=== PATIENT | male | born 1970 | race Two or more races ===

== ENCOUNTER 2016-12-26 15:06 | Inpatient (IN) | payer OTHER ==
[2016-12-26 18:28] VITALS: BMI 18.4
--- NOTE | 2016-12-26 21:29 | HP ---
CIWA Score - CIWA Score Nausea/Vomitin Muscle Tremors: 4-Moderate,w/Arms Extend Anxiety: 4-Mod. Anxious/Guarded Agitation: 4-Moderately Restless Paroxysmal Sweats: 1-Minimal Palms Moist Orientation: 1-Uncertain about Date Tacttile Disturbances: 0-None Auditory Disturbances: 0-None Visual Disturbances: 0-None Headache: 0-None Present CIWA-Ar Total Score: 16 Admission ROS BHS - HPI Chief Complaint: WITHDRAWAL SX Allergies/Adverse Reactions: Allergies Allergy/AdvReac Type Severity Reaction Status Date / Time No Known Allergies Allergy Verified 02/20/14 10:56 History of Present Illness: 45 YEARS OLD MALE WITH LONG HISTORY OF ALCOHOL XANAX NICOTINE DEPENDENCE HAS DIABETES AND LIVER CIRRHOSIS AND DEPRESSION IS ADMITTED TO DETOX Exam Limitations: No Limitations - Ebola screening Have you traveled outside of the country in the last 21 days: No Have you had contact with anyone from an Ebola affected area: No Have you been sick,other than usual withdrawal symptoms: No Do you have a fever: No - Review of Systems Constitutional: Loss of Appetite, Changes in sleep, Unintentional Wgt. Loss, Unexplained wgt Loss EENT: reports: No Symptoms Reported Respiratory: reports: SOB with Exertion, Productive cough (GREENISH) Cardiac: reports: No Symptoms Reported GI: reports: Nausea, Poor Appetite, Poor Fluid Intake, Vomiting, Indigestion, Abdominal cramping : reports: No Symptoms Reported Musculoskeletal: reports: Back Pain, Joint Pain, Muscle Pain, Neck Pain Integumentary: reports: Rash (LEFT FORE ARM FROM DRYNESS) Neuro: reports: Tremors Endocrine: reports: No Symptoms Reported Hematology: reports: No Symptoms Reported Psychiatric: reports: Judgement Intact, Anxious, Depressed Other Systems: Reviewed and Negative Patient History - Patient Medical History Hx Anemia: No Hx Asthma: Yes (As a child) Hx Chronic Obstructive Pulmonary Disease (COPD): No Hx Cancer: No Hx Cardiac Disorders: No Hx Congestive Heart Failure: No Hx Hypertension: No Hx Hypercholesterolemia: No Hx Pacemaker: No HX Cerebrovascular Accident: No Hx Seizures: No Hx Dementia: No Hx Diabetes: Yes (Yes, BGM: 459mg/dl) Hx Gastrointestinal Disorders: Yes Hx Liver Disease: Yes Hx Genitourinary Disorders: No Hx Sexually Transmitted Disorders: No Hx Renal Disease (ESRD): No Hx Thyroid Disease: No Hx Human Immunodeficiency Virus (HIV): No (03/2011-negative results) Hx Hepatitis C: No Hx Depression: Yes Hx Suicide Attempt: No Hx Bipolar Disorder: No Hx Schizophrenia: No - Patient Surgical History Past Surgical History: No Hx Neurologic Surgery: No Hx Cataract Extraction: No Hx Cardiac Surgery: No Hx Lung Surgery: No Hx Breast Surgery: No Hx Breast Biopsy: No Hx Abdominal Surgery: No Hx Appendectomy: No Hx Cholecystectomy: No Hx Genitourinary Surgery: No Hx Orthopedic Surgery: No - PPD History Previous Implant?: Yes Documented Results: Negative w/o proof Implanted On Prior R Admission?: Yes Date: 10/15/13 Results: 0 mm PPD to be Administered?: Yes - Smoking Cessation Smoking history: Current every day smoker Have you smoked in the past 12 months: Yes Aproximately how many cigarettes per day: 20 Cigars Per Day: 0 Hx Chewing Tobacco Use: No Initiated information on smoking cessation: Yes 'Breaking Loose' booklet given: 12/26/16 - Substance & Tx. History Hx Alcohol Use: Yes Hx Substance Use: Yes Substance Use Type: Alcohol, Cocaine, Heroin, Tranquilizers Hx Substance Use Treatment: Yes (2013) - Substances Abused Alcohol Route: Oral Frequency: Daily Amount used: Beer 10- 15 cans, Liquor 1 bottle Age of first use: 19 Date of Last Use: 12/26/16 Alprazolam (Xanax) Route: Oral Frequency: Daily Amount used: 10mg Age of first use: 23 Date of Last Use: 12/26/16 Family Disease History - Family Disease History Family Disease History: CA: Mother ( FROM BREAST CA.), Other: Father (ETOH DEPENDENT) Admission Physical Exam S - Vital Signs Vital Signs: Vital Signs - 24 hr 12/26/16 18:26 Temperature 98.2 F Pulse Rate 103 H Respiratory 20 Rate Blood Pressure 95/57 - Physical General Appearance: Yes: Appropriately Dressed, Mild Distress, Thin, Tremorous, Irritable, Sweating, Anxious HEENTM: Yes: Hearing grossly Normal, Normal ENT Inspection, Normocephalic, Normal Voice Respiratory: Yes: Chest Non-Tender, No Respiratory Distress, No Accessory Muscle Use, Wheezing, Expiration Neck: Yes: Supple, Trachea in good position Breast: Yes: Breasts Symetrical Cardiology: Yes: Regular Rhythm, Regular Rate, S1, S2, Tachycardia Abdominal: Yes: Non Tender, Soft, Increased Bowel Sounds Genitourinary: Yes: Within Normal Limits Back: Yes: Normal Inspection Musculoskeletal: Yes: full range of Motion, Gait Steady, Back pain, Muscle Pain Extremities: Yes: Normal Inspection (RASHES ON LEFT INNER FORE ARM), Normal Range of Motion, Non-Tender, Tremors Neurological: Yes: Alert, Motor Strength 5/5, Normal Response, Depressed Affect Integumentary: Yes: Dry, Warm Lymphatic: Yes: Within Normal Limits - Diagnostic (1) Depressed Current Visit: Yes Status: Suspected Qualifiers: Depression Type: dysthymia Qualified Code(s): F34.1 - Dysthymic disorder; F34.1 - Dysthymic disorder; F34.1 - Dysthymic disorder (2) Methadone maintenance therapy patient Current Visit: Yes Status: Chronic Comment: 140 MG VERIFICATION PENDING (3) Type 2 diabetes mellitus Current Visit: Yes Status: Chronic Qualifiers: Diabetes mellitus complication status: without complication Diabetes mellitus adjunct faculty for medical terminology insulin use: without adjunct faculty for medical terminology use Qualified Code(s): E11.9 - Type 2 diabetes mellitus without complications; E11.9 - Type 2 diabetes mellitus without complications; E11.9 - Type 2 diabetes mellitus without complications; E11.9 - Type 2 diabetes mellitus without complications (4) Nicotine dependence Current Visit: Yes Status: Acute (5) Dry skin Current Visit: Yes Status: Acute (6) Asthma Current Visit: Yes Status: Chronic Qualifiers: Asthma severity: mild Asthma persistence: intermittent Asthma complication type: with status asthmaticus Qualified Code(s): J45.22 - Mild intermittent asthma with status asthmaticus; J45.22 - Mild intermittent asthma with status asthmaticus; J45.22 - Mild intermittent asthma with status asthmaticus (7) GERD (gastroesophageal reflux disease) Current Visit: Yes Status: Chronic Qualifiers: Esophagitis presence: without esophagitis Qualified Code(s): K21.9 - Gastro-esophageal reflux disease without esophagitis; K21.9 - Gastro- esophageal reflux disease without esophagitis; K21.9 - Gastro-esophageal reflux disease without esophagitis Cleared for Admission BHS - Detox or Rehab [facility] Level of Care: Medically Managed Detox Regimen/Protocol: Valium S Breath Alcohol Content Breath Alcohol Content: 0 Urine Drug Screen - Results Drug Screen Negative: No Urine Drug Screen Results: JONO-Cocaine, OPI-Opiates, BZO-Benzodiazepines, MTD- Methadone, TCA-Tricyclic Antidepress
[2016-12-26] MEDS ORDERED: ACETAMINOPHEN 325 MG TABLET (FP) PO PRN (21:32)
[2016-12-26] MEDS ORDERED: diazePAM 5 MG TABLET PO ONE (21:32)
[2016-12-26] MEDS ORDERED: MENTHOL/PHENOL 1 EACH UD MM PRN (21:32)
[2016-12-26] MEDS ORDERED: MAGNESIUM HYDROX 2400MG/30ML ORAL SUSPENSION 30 ML CUP PO PRN (21:32)
[2016-12-26] MEDS ORDERED: MAG HYDROX/AL HYDROX/SIMETH 30 ML UNIT-DOSE CUP PO PRN (21:32)
[2016-12-26] MEDS ORDERED: P-EPHED 60MG/TRIPROLIDI 2.5MG TABLET PO PRN (21:32)
[2016-12-26] MEDS ORDERED: NICOTINE POLACRILEX 4 MG GUM BC PRN (21:32)
[2016-12-26] MEDS ORDERED: guaiFENesin/D-METHORPHAN HB 10 ML UNIT-DOSE CUPS PO PRN (21:32)
[2016-12-26] MEDS ORDERED: LOPERAMIDE HCL 2 MG CAPSULE PO PRN (21:32)
[2016-12-26] MEDS ORDERED: MAGNESIUM CITRATE 300 ML BOTTLE PO PRN (21:32)
[2016-12-26] MEDS ORDERED: COLLOIDAL OATMEAL 1 BAR EACH TP PRN (21:35)
[2016-12-26] MEDS ORDERED: ALBUTEROL SO4 18 GM HFA INHALER IH PRN (21:37)
[2016-12-26] MEDS ORDERED: INSULIN (NOVOLOG) ASPART 100 UNITS/ML 10ML VIAL ONE (22:31)
[2016-12-26] MEDS: diphenhydrAMINE HCL 50 MG CAPSULE PO PRN (22:33)
[2016-12-26] MEDS: RANITIDINE HCL 150 MG TABLET (FP) PO SCH (22:33)
[2016-12-26] MEDS: THIAMINE HCL 100 MG TABLET (FP) PO SCH (22:33)
[2016-12-26] MEDS: diazePAM 5 MG TABLET PO SCH (22:37)
[2016-12-26] MEDS: INSULIN SLIDING SCALE (NOVOLOG) 1 VIAL SQ SCH (22:40)
[2016-12-26] MEDS: MINERAL OIL/PETROLAT/WATER TOPICAL CREAM 113 GM JAR TP SCH (22:40)
[2016-12-26 23:10] LABS: URINE APPEARANCE CLEAR; URINE BILIRUBIN NEGATIVE (NEGATIVE); URINE BLOOD NEGATIVE (NEGATIVE); URINE COLOR YELLOW; URINE GLUCOSE (UA) 3+ (NEGATIVE); URINE KETONE NEGATIVE (NEGATIVE); URINE LEUK ESTERASE NEGATIVE (NEGATIVE); URINE NITRITE NEGATIVE (NEGATIVE); URINE PROTEIN NEGATIVE (NEGATIVE)
[2016-12-27] MEDS: diazePAM 5 MG TABLET PO SCH ×3 (05:23→22:50)
[2016-12-27] MEDS ORDERED: INSULIN (NOVOLOG) ASPART 100 UNITS/ML 10ML VIAL ONE ×3 (06:36→17:35)
[2016-12-27] MEDS: metFORMIN HCL 500 MG TABLET (FP) PO SCH ×2 (06:57→17:44)
[2016-12-27] MEDS: INSULIN SLIDING SCALE (NOVOLOG) 1 VIAL SQ SCH ×4 (07:01→22:51)
--- NOTE | 2016-12-27 07:39 | CONSULT ---
[facility] Psychiatric Consult - Data Date of interview: 12/27/16 Admission source: [facility] Identifying data: This is 46 years old male with no psychiatric hospitalization history intoxicated with: Alcohol, Cocaine, Cannabis, Xanax, Nicotine, Opioids Substance Abuse History: - Smoking Cessation. Smoking history: Current every day smoker. Have you smoked in the past 12 months: Yes. Aproximately how many cigarettes per day: 20. Cigars Per Day: 0. Hx Chewing Tobacco Use: No. Initiated information on smoking cessation: Yes. 'Breaking Loose' booklet given : 12/26/16. - Substance & Tx. History. Hx Alcohol Use: Yes. Hx Substance Use : Yes. Substance Use Type: Alcohol, Cocaine, Heroin, Tranquilizers. Hx Substance Use Treatment: Yes (2013). - Substances Abused. Alcohol. Route: Oral. Frequency: Daily. Amount used: Beer 10- 15 cans, Liquor 1 bottle. Age of first use: 19. Date of Last Use: 12/26/16. Alprazolam (Xanax). Route: Oral. Frequency: Daily. Amount used: 10mg. Age of first use: 23. Date of Last Use: 12/26/16 Medical History: Asthma, GERD, DM-2, Seizure history, Syncope history, MMTP 140mf/day Psychiatric History: Patient reports history of depression, reports takijg prior to admission: Seroquel 50mg po bid. Vistaril 50mg po q4 prn for anxiety Physical/Sexual Abuse/Trauma History: Denies Additional Comment: Seroquel 50mg po bid. Vistaril 50mg po q4 prn for anxiety Mental Status Exam - Mental Status Exam Alert and Oriented to: Person Cognitive Function: Fair Patient Appearance: Well Groomed Mood: Apprehensive Affect: Mood Congruent Patient Behavior: Cooperative Speech Pattern: Appropriate Voice Loudness: Normal Thought Process: Goal Oriented Thought Disorder: Being Controlled Hallucinations: Denies Suicidal Ideation: Denies Homicidal Ideation: Denies Insight/Judgement: Fair Appetite: Weight loss Muscle strength/Tone: Normal Gait/Station: Normal Additional Comments: Seroquel 50mg po bid. 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 Vistaril 50mg po q4 prn for anxiety
[2016-12-27] MEDS ORDERED: hydrOXYzine PAMOATE 50 MG CAPSULE (FP) PO PRN (09:24)
[2016-12-27 09:41] LABS: MCH 31.3 pg (25.7-33.7); MEAN CELL VOLUME 94.8 fl (80-96); MEAN PLT VOLUME 10.2 fl (7.5-11.1); PLATELET COUNT 78 K/MM3 (134-434); RDW 13.9 % (11.9-15.9); WHITE BLOOD COUNT 4.4 K/mm3 (4.0-10.0)
[2016-12-27 09:49] LABS: ALBUMIN 3.2 g/dl (3.4-5.0); ANION GAP 4 (8-16); CALCIUM 8.7 mg/dL (8.5-10.1); CO2 32 mmol/L (21-32); CREATININE 0.6 mg/dL (0.7-1.3); GLUCOSE,RANDOM 268 mg/dL (74-106); SGOT/AST 73 U/L (15-37)
[2016-12-27 09:52] LABS: ALK PHOS 357 U/L (45-117); BILIRUBIN,TOTAL 0.4 mg/dL (0.2-1.0); SGPT/ALT 124 U/L (12-78); TOT PROT 6.6 g/dl (6.4-8.2)
[2016-12-27] MEDS ORDERED: METHADONE HCL 40 MG DISPERSABLE TABLET PO SCH (10:00)
[2016-12-27] MEDS: RANITIDINE HCL 150 MG TABLET (FP) PO SCH ×2 (10:16→22:51)
[2016-12-27] MEDS: PRENATAL VITAMINS W/ FOLIC ACID TABLET (FP) PO SCH (10:16)
[2016-12-27] MEDS: diazePAM 5 MG TABLET PO PRN (10:16)
[2016-12-27] MEDS: NICOTINE 21 MG/24 HOURS TOPICAL PATCH TD SCH (10:18)
[2016-12-27] MEDS ORDERED: METHADONE HCL 40 MG DISPERSABLE TABLET ONE (10:23)
[2016-12-27] MEDS ORDERED: METHADONE HCL 10 MG TABLET ONE (10:23)
[2016-12-27] MEDS: METHADONE 120 MG, METHADONE 20 MG PO SCH (10:24)
[2016-12-27] MEDS: QUEtiapine FUMARATE 50 MG TABLET PO SCH ×2 (10:28→22:51)
--- NOTE | 2016-12-27 11:51 | EKG ---
Test Reason : Blood Pressure : / mmHG Vent. Rate : 083 BPM Atrial Rate : 083 BPM P-R Int : 136 ms QRS Dur : 100 ms QT Int : 394 ms P-R-T Axes : 073 062 060 degrees QTc Int : 462 ms NORMAL SINUS RHYTHM INCOMPLETE RIGHT BUNDLE BRANCH BLOCK BORDERLINE ECG NO PREVIOUS ECGS AVAILABLE Confirmed by RADHA SALCEDO, ANALY ([id number]) on 12/27/2016 11:50:49 AM Referred By: Confirmed By:ANALY GARCIA MD
[2016-12-27] MEDS ORDERED: PNEUMOCOCCAL 23 VACCINE 0.5 ML VIAL IM ONE (12:00)
[2016-12-27] MEDS ORDERED: FLU VACCINE QUAD 60 MCG/0.5 ML (MDV 17-18) IM ONE ×2 (12:00→12:20)
[2016-12-27] MEDS ORDERED: PNEUMOC 13-VAL CONJ-DIP CRM/PF 0.5 ML DISP.SYRIN IM ONE (12:00)
--- NOTE | 2016-12-27 12:17 | PN ---
S CIWA - CIWA Score Nausea/Vomitin Muscle Tremors: 3 Anxiety: 3 Agitation: 3 Paroxysmal Sweats: 1-Minimal Palms Moist Orientation: 0-Oriented Tacttile Disturbances: 1-Very Mild Itch/Numbness Auditory Disturbances: 1-Very Mild Visual Disturbances: 0-None Headache: 2-Mild CIWA-Ar Total Score: 17 BHS Progress Note (SOAP) Subjective: alert,irritable,anxious,interrupted sleep,tremor,pain in the body and back Objective: 12/27/16 12:15 Vital Signs Temperature 98.2 F 12/27/16 10:35 Pulse Rate 110 H 12/27/16 10:35 Respiratory Rate 20 12/27/16 10:35 Blood Pressure 108/69 12/27/16 10:35 O2 Sat by Pulse Oximetry (%) ekg nsr no chest pain,nosob,no dizziness Laboratory Last Values WBC 4.4 K/mm3 (4.0-10.0) 12/27/16 07:00 RBC 4.18 M/mm3 (4.00-5.60) 12/27/16 07:00 Hgb 13.1 GM/dL (11.7-16.9) 12/27/16 07:00 Hct 39.6 % (35.4-49) 12/27/16 07:00 MCV 94.8 fl (80-96) 12/27/16 07:00 MCH 31.3 pg (25.7-33.7) 12/27/16 07:00 MCHC 33.0 g/dl (32.0-35.9) 12/27/16 07:00 RDW 13.9 % (11.9-15.9) 12/27/16 07:00 Plt Count 78 K/MM3 (134-434) L 12/27/16 07:00 MPV 10.2 fl (7.5-11.1) 12/27/16 07:00 Sodium 139 mmol/L (136-145) 12/27/16 07:00 Potassium 4.5 mmol/L (3.5-5.1) D 12/27/16 07:00 Chloride 103 mmol/L (98-107) 12/27/16 07:00 Carbon Dioxide 32 mmol/L (21-32) 12/27/16 07:00 Anion Gap 4 (8-16) L 12/27/16 07:00 BUN 14 mg/dL (7-18) 12/27/16 07:00 Creatinine 0.6 mg/dL (0.7-1.3) L 12/27/16 07:00 Creat Clearance w eGFR > 60 (>60) 12/27/16 07:00 POC Glucometer 379 UNITS (()) 12/27/16 11:09 Random Glucose 268 mg/dL (74-106) H D 12/27/16 07:00 Calcium 8.7 mg/dL (8.5-10.1) 12/27/16 07:00 Total Bilirubin 0.4 mg/dL (0.2-1.0) 12/27/16 07:00 AST 73 U/L (15-37) H D 12/27/16 07:00 ALT 124 U/L (12-78) H D 12/27/16 07:00 Alkaline Phosphatase 357 U/L (45-117) H D 12/27/16 07:00 Total Protein 6.6 g/dl (6.4-8.2) 12/27/16 07:00 Albumin 3.2 g/dl (3.4-5.0) L 12/27/16 07:00 Urine Color Yellow 12/26/16 22:11 Urine Appearance Clear 12/26/16 22:11 Urine pH 6.0 (5.0-8.0) 12/26/16 22:11 Ur Specific [place] 1.020 (1.005-1.025) 12/26/16 22:11 Urine Protein Negative (NEGATIVE) 12/26/16 22:11 Urine Glucose (UA) 3+ (NEGATIVE) H 12/26/16 22:11 Urine Ketones Negative (NEGATIVE) 12/26/16 22:11 Urine Blood Negative (NEGATIVE) 12/26/16 22:11 Urine Nitrite Negative (NEGATIVE) 12/26/16 22:11 Urine Bilirubin Negative (NEGATIVE) 12/26/16 22:11 Urine Urobilinogen 2.0 mg/dL (0.2-1.0) 12/26/16 22:11 RPR Titer Nonreactive (NONREACTIVE) 12/27/16 07:00 Assessment: 12/27/16 12:16 withdrawal symptom Plan: continue detox,d/c tylenol for elevation of alt,ast
[2016-12-27] MEDS: THIAMINE HCL 100 MG TABLET (FP) PO SCH (22:51)
[2016-12-27] MEDS: MINERAL OIL/PETROLAT/WATER TOPICAL CREAM 113 GM JAR TP SCH (22:54)
[2016-12-28] MEDS ORDERED: METHADONE HCL 40 MG DISPERSABLE TABLET ONE (05:23)
[2016-12-28] MEDS ORDERED: METHADONE HCL 10 MG TABLET ONE (06:00)
[2016-12-28] MEDS: METHADONE 120 MG, METHADONE 20 MG PO SCH (06:02)
[2016-12-28] MEDS: diazePAM 5 MG TABLET PO PRN (06:05)
[2016-12-28] MEDS: metFORMIN HCL 500 MG TABLET (FP) PO SCH ×2 (06:31→18:06)
[2016-12-28] MEDS ORDERED: INSULIN (NOVOLOG) ASPART 100 UNITS/ML 10ML VIAL ONE ×3 (06:37→21:46)
[2016-12-28] MEDS: INSULIN SLIDING SCALE (NOVOLOG) 1 VIAL SQ SCH ×4 (06:43→22:45)
[2016-12-28] MEDS: PRENATAL VITAMINS W/ FOLIC ACID TABLET (FP) PO SCH (10:25)
[2016-12-28] MEDS: NICOTINE 21 MG/24 HOURS TOPICAL PATCH TD SCH (10:25)
[2016-12-28] MEDS: QUEtiapine FUMARATE 50 MG TABLET PO SCH ×2 (10:25→22:44)
[2016-12-28] MEDS: RANITIDINE HCL 150 MG TABLET (FP) PO SCH ×2 (10:25→23:05)
[2016-12-28] MEDS: diazePAM 5 MG TABLET PO SCH ×2 (10:25→23:05)
--- NOTE | 2016-12-28 11:17 | PN ---
S CIWA - CIWA Score Nausea/Vomitin-No Nausea/No Vomiting Muscle Tremors: 4-Moderate,w/Arms Extend Anxiety: 3 Agitation: 4-Moderately Restless Paroxysmal Sweats: 3 Orientation: 0-Oriented Tacttile Disturbances: 0-None Auditory Disturbances: 0-None Visual Disturbances: 0-None Headache: 0-None Present CIWA-Ar Total Score: 14 BHS Progress Note (SOAP) Subjective: sweats shakes interrupted sleep agitation body aches Objective: 12/28/16 11:16 Vital Signs Temperature 99 F 12/28/16 11:08 Pulse Rate 123 H 12/28/16 11:08 Respiratory Rate 18 12/28/16 11:08 Blood Pressure 100/71 12/28/16 11:08 O2 Sat by Pulse Oximetry (%) Laboratory Tests 12/26/16 12/26/16 12/26/16 20:46 22:11 22:27 WBC RBC Hgb Hct MCV MCH MCHC RDW Plt Count MPV Sodium Potassium Chloride Carbon Dioxide Anion Gap BUN Creatinine Creat Clearance w eGFR POC Glucometer 459 538 Random Glucose Calcium Total Bilirubin AST ALT Alkaline Phosphatase Total Protein Albumin Urine Color Yellow Urine Appearance Clear Urine pH 6.0 Ur Specific [place] 1.020 Urine Protein Negative Urine Glucose (UA) 3+ H Urine Ketones Negative Urine Blood Negative Urine Nitrite Negative Urine Bilirubin Negative Urine Urobilinogen 2.0 RPR Titer 12/27/16 12/27/16 12/27/16 05:58 07:00 07:00 WBC 4.4 RBC 4.18 Hgb 13.1 Hct 39.6 MCV 94.8 MCH 31.3 MCHC 33.0 RDW 13.9 Plt Count 78 L MPV 10.2 Sodium 139 Potassium 4.5 D Chloride 103 Carbon Dioxide 32 Anion Gap 4 L BUN 14 Creatinine 0.6 L Creat Clearance w eGFR > 60 POC Glucometer 415 Random Glucose 268 H D Calcium 8.7 Total Bilirubin 0.4 AST 73 H D ALT 124 H D Alkaline Phosphatase 357 H D Total Protein 6.6 Albumin 3.2 L Urine Color Urine Appearance Urine pH Ur Specific [place] Urine Protein Urine Glucose (UA) Urine Ketones Urine Blood Urine Nitrite Urine Bilirubin Urine Urobilinogen RPR Titer 12/27/16 12/27/16 12/27/16 07:00 11:09 16:49 WBC RBC Hgb Hct MCV MCH MCHC RDW Plt Count MPV Sodium Potassium Chloride Carbon Dioxide Anion Gap BUN Creatinine Creat Clearance w eGFR POC Glucometer 379 268 Random Glucose Calcium Total Bilirubin AST ALT Alkaline Phosphatase Total Protein Albumin Urine Color Urine Appearance Urine pH Ur Specific [place] Urine Protein Urine Glucose (UA) Urine Ketones Urine Blood Urine Nitrite Urine Bilirubin Urine Urobilinogen RPR Titer Nonreactive 12/27/16 12/28/16 21:48 05:55 WBC RBC Hgb Hct MCV MCH MCHC RDW Plt Count MPV Sodium Potassium Chloride Carbon Dioxide Anion Gap BUN Creatinine Creat Clearance w eGFR POC Glucometer 237 312 Random Glucose Calcium Total Bilirubin AST ALT Alkaline Phosphatase Total Protein Albumin Urine Color Urine Appearance Urine pH Ur Specific [place] Urine Protein Urine Glucose (UA) Urine Ketones Urine Blood Urine Nitrite Urine Bilirubin Urine Urobilinogen RPR Titer elevated ast/alt; d/c Tylenol repeat ast/alt AAOx3 ambulation no acute distress Assessment: 12/28/16 11:20 withdrawal sx Plan: continue detox increase fluids
[2016-12-28] MEDS: LIDOCAINE 5% TOPICAL PATCH TP SCH (12:45)
[2016-12-28] MEDS: THIAMINE HCL 100 MG TABLET (FP) PO SCH (22:44)
[2016-12-28] MEDS: LIDOCAINE PATCH REMOVAL MC SCH (23:04)
[2016-12-28] MEDS: MINERAL OIL/PETROLAT/WATER TOPICAL CREAM 113 GM JAR TP SCH (23:04)
[2016-12-29] MEDS ORDERED: METHADONE HCL 40 MG DISPERSABLE TABLET ONE ×2 (03:02→05:00)
[2016-12-29] MEDS ORDERED: METHADONE HCL 10 MG TABLET ONE ×2 (03:03→05:01)
[2016-12-29] MEDS: metFORMIN HCL 500 MG TABLET (FP) PO SCH ×2 (06:44→17:15)
[2016-12-29] MEDS: METHADONE 120 MG, METHADONE 20 MG PO SCH (06:44)
[2016-12-29] MEDS ORDERED: INSULIN (NOVOLOG) ASPART 100 UNITS/ML 10ML VIAL ONE ×4 (06:48→22:51)
[2016-12-29] MEDS: INSULIN SLIDING SCALE (NOVOLOG) 1 VIAL SQ SCH ×4 (06:50→22:52)
[2016-12-29 10:09] LABS: SGOT/AST 113 U/L (15-37); SGPT/ALT 123 U/L (12-78)
[2016-12-29] MEDS: IBUPROFEN 600 MG TABLET (FP) PO PRN (10:57)
[2016-12-29] MEDS: NICOTINE 21 MG/24 HOURS TOPICAL PATCH TD SCH (10:58)
[2016-12-29] MEDS: RANITIDINE HCL 150 MG TABLET (FP) PO SCH ×2 (10:59→22:39)
[2016-12-29] MEDS: PRENATAL VITAMINS W/ FOLIC ACID TABLET (FP) PO SCH (10:59)
[2016-12-29] MEDS: diazePAM 5 MG TABLET PO SCH ×2 (11:10→22:38)
[2016-12-29] MEDS: QUEtiapine FUMARATE 50 MG TABLET PO SCH ×2 (11:10→22:39)
[2016-12-29] MEDS: LIDOCAINE 5% TOPICAL PATCH TP SCH (11:37)
[2016-12-29] MEDS ORDERED: AMMONIUM LACTATE 12% LOTION 225 GM BOTTLE TP PRN (11:44)
--- NOTE | 2016-12-29 11:44 | PN ---
BHS Progress Note (SOAP) Subjective: dry skin feeling better interrupted sleep Objective: 12/29/16 11:43 Vital Signs Temperature 99.5 F 12/29/16 10:00 Pulse Rate 107 H 12/29/16 10:00 Respiratory Rate 16 12/29/16 10:00 Blood Pressure 111/71 12/29/16 10:00 O2 Sat by Pulse Oximetry (%) aaox3 ambulating no acute distress Assessment: 12/29/16 11:43 withdrawal sx Plan: continue detox lac-hydrin lotion d/c in am
[2016-12-29] MEDS: THIAMINE HCL 100 MG TABLET (FP) PO SCH (22:39)
[2016-12-29] MEDS: diphenhydrAMINE HCL 50 MG CAPSULE PO PRN (22:39)
[2016-12-29] MEDS: LIDOCAINE PATCH REMOVAL MC SCH (23:40)
[2016-12-30] MEDS ORDERED: METHADONE HCL 10 MG TABLET ONE (05:28)
[2016-12-30] MEDS ORDERED: METHADONE HCL 40 MG DISPERSABLE TABLET ONE (05:28)
[2016-12-30] MEDS: METHADONE 120 MG, METHADONE 20 MG PO SCH (06:10)
[2016-12-30] MEDS: metFORMIN HCL 500 MG TABLET (FP) PO SCH (06:11)
[2016-12-30] MEDS ORDERED: INSULIN (NOVOLOG) ASPART 100 UNITS/ML 10ML VIAL ONE (08:03)
[2016-12-30] MEDS: INSULIN SLIDING SCALE (NOVOLOG) 1 VIAL SQ SCH (08:10)
[2016-12-30] MEDS: IBUPROFEN 600 MG TABLET (FP) PO PRN (09:13)
--- NOTE | 2016-12-30 09:30 | PN ---
[facility] Progress Note Note: Pt. spiked temp earlier today, he was given tylenol & Temp went down to 99.9F C/O productive cough Throat : WNL Lungs : few scattered rhonchi Heart : RR, no Murmur Dx. : R/O Bronchitis P : Levaquin 500mg daily, F/U with primary care
[2016-12-30] MEDS ORDERED: LEVOFLOXACIN 500 MG TABLET (FP) PO SCH (10:00)
[2016-12-30] MEDS ORDERED: diazePAM 5 MG TABLET PO SCH (10:00)
[2016-12-30] MEDS: RANITIDINE HCL 150 MG TABLET (FP) PO SCH (10:06)
[2016-12-30] MEDS: QUEtiapine FUMARATE 50 MG TABLET PO SCH (10:06)
[2016-12-30] MEDS: PRENATAL VITAMINS W/ FOLIC ACID TABLET (FP) PO SCH (10:06)
--- NOTE | 2016-12-30 10:36 | DS ---
[facility] Detox Discharge Summary Admission Date: 12/26/16 Discharge Date: 12/30/16 - History Present History: Sedative Dependence, MMTP Pertinent Past History: GERD Type II DM - Physical Exam Results Vital Signs: Vital Signs Temperature 99.9 F H 12/30/16 07:30 Pulse Rate 102 H 12/30/16 06:00 Respiratory Rate 18 12/30/16 06:00 Blood Pressure 132/78 12/30/16 06:00 O2 Sat by Pulse Oximetry (%) Lungs : Few scattered rhonchi , consistent with bronchitis. Levaquin 500mg x 7 days started. Pertinent Admission Physical Exam Findings: Withdrawal sx. Laboratory Last Values WBC 4.4 K/mm3 (4.0-10.0) 12/27/16 07:00 RBC 4.18 M/mm3 (4.00-5.60) 12/27/16 07:00 Hgb 13.1 GM/dL (11.7-16.9) 12/27/16 07:00 Hct 39.6 % (35.4-49) 12/27/16 07:00 MCV 94.8 fl (80-96) 12/27/16 07:00 MCH 31.3 pg (25.7-33.7) 12/27/16 07:00 MCHC 33.0 g/dl (32.0-35.9) 12/27/16 07:00 RDW 13.9 % (11.9-15.9) 12/27/16 07:00 Plt Count 78 K/MM3 (134-434) L 12/27/16 07:00 MPV 10.2 fl (7.5-11.1) 12/27/16 07:00 Sodium 139 mmol/L (136-145) 12/27/16 07:00 Potassium 4.5 mmol/L (3.5-5.1) D 12/27/16 07:00 Chloride 103 mmol/L (98-107) 12/27/16 07:00 Carbon Dioxide 32 mmol/L (21-32) 12/27/16 07:00 Anion Gap 4 (8-16) L 12/27/16 07:00 BUN 14 mg/dL (7-18) 12/27/16 07:00 Creatinine 0.6 mg/dL (0.7-1.3) L 12/27/16 07:00 Creat Clearance w eGFR > 60 (>60) 12/27/16 07:00 POC Glucometer 201 UNITS (()) 12/30/16 06:10 Random Glucose 268 mg/dL (74-106) H D 12/27/16 07:00 Calcium 8.7 mg/dL (8.5-10.1) 12/27/16 07:00 Total Bilirubin 0.4 mg/dL (0.2-1.0) 12/27/16 07:00 AST 113 U/L (15-37) H D 12/29/16 07:00 ALT 123 U/L (12-78) H 12/29/16 07:00 Alkaline Phosphatase 357 U/L (45-117) H D 12/27/16 07:00 Total Protein 6.6 g/dl (6.4-8.2) 12/27/16 07:00 Albumin 3.2 g/dl (3.4-5.0) L 12/27/16 07:00 Urine Color Yellow 12/26/16 22:11 Urine Appearance Clear 12/26/16 22:11 Urine pH 6.0 (5.0-8.0) 12/26/16 22:11 Ur Specific [place] 1.020 (1.005-1.025) 12/26/16 22:11 Urine Protein Negative (NEGATIVE) 12/26/16 22:11 Urine Glucose (UA) 3+ (NEGATIVE) H 12/26/16 22:11 Urine Ketones Negative (NEGATIVE) 12/26/16 22:11 Urine Blood Negative (NEGATIVE) 12/26/16 22:11 Urine Nitrite Negative (NEGATIVE) 12/26/16 22:11 Urine Bilirubin Negative (NEGATIVE) 12/26/16 22:11 Urine Urobilinogen 2.0 mg/dL (0.2-1.0) 12/26/16 22:11 RPR Titer Nonreactive (NONREACTIVE) 12/27/16 07:00 labs noted - Treatment Hospital Course: Detox Protocol Followed, Detoxed Safely, Responded well, Discharged Condition Good, Rehab Referral Accepted Patient has Accepted a Rehab Referral to: [facility] - Medication Discharge Medications: Ambulatory Orders Hydroxyzine Pamoate [Vistaril -] 50 mg PO Q4H PRN #90 capsule 11/10/13 Insulin Aspart [Novolog] 0 unit SQ PRN #1 box 02/20/14 Lisinopril [Prinivil] 5 mg PO DAILY #30 tablet 02/20/14 Metformin HCl [Glucophage -] 1,000 mg PO BID@0700,1630 #30 tablet 02/20/14 Quetiapine Fumarate [Seroquel -] 50 mg PO BID #60 tablet 03/17/14 Quetiapine Fumarate [Seroquel -] 50 mg PO BID #60 tablet 12/27/16 - Diagnosis (1) Drug-induced mood disorder Current Visit: Yes Status: Acute (2) Asthma Current Visit: Yes Status: Chronic Qualifiers: Asthma severity: mild Asthma persistence: intermittent Asthma complication type: with status asthmaticus Qualified Code(s): J45.22 - Mild intermittent asthma with status asthmaticus; J45.22 - Mild intermittent asthma with status asthmaticus; J45.22 - Mild intermittent asthma with status asthmaticus (3) GERD (gastroesophageal reflux disease) Current Visit: Yes Status: Chronic Qualifiers: Esophagitis presence: without esophagitis Qualified Code(s): K21.9 - Gastro-esophageal reflux disease without esophagitis; K21.9 - Gastro- esophageal reflux disease without esophagitis; K21.9 - Gastro-esophageal reflux disease without esophagitis (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: Yes Status: Chronic (5) Nicotine dependence Current Visit: Yes Status: Chronic (6) Type 2 diabetes mellitus Current Visit: Yes Status: Chronic Qualifiers: Diabetes mellitus complication status: without complication Diabetes mellitus intermediate teacher insulin use: without intermediate teacher use Qualified Code(s): E11.9 - Type 2 diabetes mellitus without complications; E11.9 - Type 2 diabetes mellitus without complications; E11.9 - Type 2 diabetes mellitus without complications; E11.9 - Type 2 diabetes mellitus without complications (7) Sedative, hypnotic or anxiolytic dependence with withdrawal, uncomplicated Current Visit: Yes Status: Acute (8) Bronchitis Current Visit: Yes Status: Acute - AMA Did Patient Leave Against Medical Advice: No
[2016-12-30 10:48] VITALS: BP 105/71; PULSE 104; TEMP 98.8
== END 2016-12-30 10:10 | disposition home or self-care (01) | DRG 773 ==
LOC: YASAS 15:06 → Y6N 20:52
PROVIDERS: ADMIT Internal Medicine; ATTEND Internal Medicine
PROC: HZ2ZZZZ Detoxification Services for Substance Abuse Treatment (ICD-10-PCS; principal; 2016-12-26)
DX: F13.230 Sedative, hypnotic or anxiolytic dependence with withdrawal, uncomplicated (principal); F10.230 Alcohol dependence with withdrawal, uncomplicated; F11.20 Opioid dependence, uncomplicated; F12.10 Cannabis abuse, uncomplicated; F17.210 Nicotine dependence, cigarettes, uncomplicated; F19.24 Other psychoactive substance dependence with psychoactive substance-induced mood disorder; F39 Unspecified mood [affective] disorder; J45.22 Mild intermittent asthma with status asthmaticus; J20.9 Acute bronchitis, unspecified; K21.9 Gastro-esophageal reflux disease without esophagitis; L98.8 Other specified disorders of the skin and subcutaneous tissue; R74.0 Nonspecific elevation of levels of transaminase and lactic acid dehydrogenase [LDH]; Z86.79 Personal history of other diseases of the circulatory system; Z86.69 Personal history of other diseases of the nervous system and sense organs; Z87.898 Personal history of other specified conditions
CPT/HCPCS: 36415; 80053; 81003; 84450; 84460; 85027; 86593; 90688; 90732; 93005; 93010; G0008; G0009